=== PATIENT | female | born 1990 | race American Indian/Alaskan Native ===

== ENCOUNTER 2019-01-29 21:56 | Emergency (ER) | payer MEDICAID, OTHER ==
[2019-01-29 21:56] VITALS: BMI 26.2
== END 2019-01-29 23:38 | disposition left against medical advice (07) ==
LOC: ED 21:56
DX: Z02.89 Encounter for other administrative examinations (principal); R50.9 Fever, unspecified

== ENCOUNTER 2019-01-30 11:52 | Emergency (ER) | payer MEDICAID, OTHER ==
[2019-01-30 11:53] VITALS: BMI 26.2
[2019-01-30 12:12] VITALS: RESP 18
--- NOTE | 2019-01-30 13:11 | ED PDOC ---
Arrival/HPI - General Chief Complaint: ENT Problem Historian: Patient - History of Present Illness Narrative History of Present Illness (Text): 01/30/19 13:09 28 year old female with no significant past medical history presents to the emergency department complaining of sore throat for the past 3 days. Patient endorses a dry cough, fever and Posttussive vomiting. Patient denies any headache, chills, chest pain, recent travel, sick contact or any other complaints. Time/Duration: < week Symptom Onset: Gradual Symptom Course: Unchanged Activities at Onset: Light Context: Home Past Medical History - Provider Review Nursing Documentation Reviewed: Yes - Infectious Disease Hx of Infectious Diseases: None - Reproductive Menopause: No - Cardiac Hx Cardiac Disorders: No - HEENT Hx HEENT Disorder: No - Endocrine/Metabolic Hx Endocrine Disorders: No - Psychiatric Hx Substance Use: No Family/Social History - Physician Review Nursing Documentation Reviewed: Yes Family/Social History: Unknown Family HX Smoking Status: Never Smoked Hx Alcohol Use: No Hx Substance Use: No Allergies/Home Meds Allergies/Adverse Reactions: Allergies No Known Allergies Allergy (Verified 08/08/15 11:55) Review of Systems - Physician Review All systems were reviewed & negative as marked: Yes - Review of Systems Constitutional: Fevers Respiratory: Cough. absent: SOB Cardiovascular: absent: Chest Pain Gastrointestinal: Vomiting Musculoskeletal: absent: Back Pain, Neck Pain Skin: absent: Rash Neurological: absent: Headache, Dizziness Endocrine: absent: Diaphoresis Physical Exam Vital Signs Reviewed: Yes Vital Signs Temp Pulse Resp BP Pulse Ox 01/30/19 13:08 94 H 18 118/59 L 97 01/30/19 12:08 99.7 F H 92 H 18 115/79 98 Temperature: Febrile Blood Pressure: Normal Pulse: Regular Respiratory Rate: Normal Appearance: Positive for: Well-Appearing, Non-Toxic, Comfortable Pain Distress: None Mental Status: Positive for: Alert and Oriented X 3 - Systems Exam Head: Present: Atraumatic, Normocephalic Pupils: Present: PERRL Extroacular Muscles: Present: EOMI Conjunctiva: Present: Normal Mouth: Present: Moist Mucous Membranes Pharnyx: Present: ERYTHEMA. No: EXUDATE, Strider Neck: Present: Normal Range of Motion, Other Respiratory/Chest: Present: Clear to Auscultation, Good Air Exchange. No: Respiratory Distress, Accessory Muscle Use Cardiovascular: Present: Regular Rate and Rhythm, Normal S1, S2. No: Murmurs Abdomen: No: Tenderness, Distention, Peritoneal Signs Back: Present: Normal Inspection Upper Extremity: Present: Normal Inspection. No: Cyanosis, Edema Lower Extremity: Present: Normal Inspection. No: Edema Neurological: Present: GCS=15, CN II-XII Intact, Speech Normal Skin: Present: Warm, Dry, Normal Color. No: Rashes Psychiatric: Present: Alert, Oriented x 3, Normal Insight, Normal Concentration Medical Decision Making ED Course and Treatment: 01/30/19 13:48 Impression: 28 year old female presents to the emergency department complaining of sore throat x 2 days. Differential Diagnosis included but are not limited to: Plan: -- Chest X-ray -- Reassess and disposition -- Decadron inj Prior Visits: Notes and results from previous visits were reviewed. Progress notes: 01/30/19 14:56 Chest X-ray reviewed by radiologist, shows no active diseases - RAD Interpretation Radiology Orders: 01/30/19 12:25 CXR [CHEST PORTABLE] [RAD] Stat - Scribe Statement The provider has reviewed the documentation as recorded by the [facility] Provider Scribe Attestation: All medical record entries made by the Scribe were at my direction and personally dictated by me. I have reviewed the chart and agree that the record accurately reflects my personal performance of the history, physical exam, medical decision making, and the department course for this patient. I have also personally directed, reviewed, and agree with the discharge instructions and disposition. Disposition/Present on Arrival - Present on Arrival Any Indicators Present on Arrival: No History of DVT/PE: No History of Uncontrolled Diabetes: No Urinary Catheter: No History of Decub. Ulcer: No History Surgical Site Infection Following: None - Disposition Have Diagnosis and Disposition been Completed?: Yes Diagnosis: Pharyngitis Disposition: HOME/ ROUTINE Disposition Time: 13:50 Condition: GOOD Discharge Instructions (ExitCare): Sore Throat, Adult (DC) Additional Instructions: PAOLA PEÑA, thank you for letting us take care of you today. Your provider was Hayes De Jesus DO and you were treated for THROAT PAIN. The emergency medical care you received today was directed at your acute symptoms. If you were prescribed any medication, please fill it and take as directed. It may take several days for your symptoms to resolve. Return to the Emergency Department if your symptoms worsen, do not improve, or if you have any other problems. Please contact your doctor or call one of the physicians/clinics you have been referred to that are listed on the Patient Visit Information form that is included in your discharge packet. Bring any paperwork you were given at discharge with you along with any medications you are taking to your follow up visit. Our treatment cannot replace ongoing medical care by a primary care provider outside of the emergency department. Thank you for allowing the [facility]o team to be part of your care today. Follow up with your primary care doctor in 3-5 days for re-evaluation and further management. Prescriptions: Amoxicillin 875 mg PO BID #14 tablet predniSONE [Prednisone] 40 mg PO DAILY 3 Days tab Referrals: Kayla Dumont, [Non-Staff] - Follow up with primary Forms: [employer] (Djiboutian)
[2019-01-30] MEDS ORDERED: Dexamethasone 4 mg/1 ml IM STA (14:01)
[2019-01-30 14:47] VITALS: BP 119/69; O2SAT 98
--- NOTE | 2019-01-30 14:52 | RAD ---
Date of service: 01/30/2019 HISTORY: cough r/o infiltrate COMPARISON: No prior. TECHNIQUE: Chest PA and lateral FINDINGS: LUNGS: No active pulmonary disease. PLEURA: No significant pleural effusion identified. No pneumothorax apparent. CARDIOVASCULAR: No aortic atherosclerotic calcification present. Normal cardiac size. No pulmonary vascular congestion. OSSEOUS STRUCTURES: No significant abnormalities. VISUALIZED UPPER ABDOMEN: Normal. OTHER FINDINGS: None. IMPRESSION: No active disease.
[2019-01-30 14:54] VITALS: PULSE 92; TEMP 98
== END 2019-01-30 14:53 | disposition home or self-care (01) ==
LOC: ED 11:52
DX: J02.9 Acute pharyngitis, unspecified (principal)
CPT/HCPCS: 71046; 81025; 96372; 99283; J1100